=== PATIENT | female | born 1980 | race Asian ===

== ENCOUNTER 2017-09-08 00:08 | Inpatient (IN) | payer OTHER ==
[~2017-09-08] VITALS: Ht 165.1 cm; Wt 82.5 kg
[2017-09-08] MEDS ORDERED: OXYTOCIN 30U/ 0.9% NaCL 500ML 500 ML IV SCH ×2 (00:20→01:56)
[2017-09-08] MEDS ORDERED: LACTATED RINGERS 1,000 ML IV SCH ×4 (00:20→01:56)
[2017-09-08] MEDS ORDERED: METOCLOPRAMIDE 5 MG/ML, 2ML ONE (00:27)
[2017-09-08] MEDS ORDERED: SODIUM CITRATE/CITRIC ACID 30 ML UDC ONE (00:27)
[2017-09-08] MEDS ORDERED: LACTATED RINGERS 1,000 ML IVBOLUS ONE (00:30)
[2017-09-08] MEDS ORDERED: CEFAZOLIN PMX 1GM/50ML 50 ML IVPB ONE (00:30)
[2017-09-08] MEDS ORDERED: CALCIUM CARBONATE 500 MG TAB.CHEW PO PRN (00:30)
[2017-09-08] MEDS ORDERED: ONDANSETRON 2MG/ML, 2ML IVPush ONE (00:30)
[2017-09-08] MEDS ORDERED: METOCLOPRAMIDE 5 MG/ML, 2ML IV ONE (00:30)
[2017-09-08] MEDS ORDERED: SODIUM CITRATE/CITRIC ACID 30 ML UDC PO ONE (00:30)
[2017-09-08] MEDS ORDERED: OXYTOCIN 10 UNITS/ML, 1ML ONE (00:34)
[2017-09-08] MEDS ORDERED: FENTANYL PF 100 MCG/2ML ONE (00:34)
[2017-09-08] MEDS ORDERED: CEFAZOLIN 1,000 MG ONE (00:34)
[2017-09-08] MEDS ORDERED: ONDANSETRON 2MG/ML, 2ML ONE (00:34)
[2017-09-08] MEDS ORDERED: HYDROmorphone 2 MG/ML, 1ML ONE (00:35)
[2017-09-08] MEDS ORDERED: OXYTOCIN 30U/ 0.9% NaCL 500ML 500 ML ONE (00:36)
[2017-09-08 00:57] LABS: HEMATOCRIT 40.2 % (34.6-47.8); HEMOGLOBIN 13.5 g/dL (11.7-16.4); WHITE BLOOD COUNT 12.6 x10^3/uL (3.4-10)
[2017-09-08] MEDS ORDERED: MISOPROSTOL 200 MCG TABLET PR PRN (02:00)
[2017-09-08] MEDS ORDERED: IBUPROFEN 600 MG TABLET PO PRN (02:00)
[2017-09-08] MEDS ORDERED: morphine SULFATE 10 MG/ML, 1ML IVPush PRN ×2 (02:00)
[2017-09-08] MEDS ORDERED: ACETAMINOPHEN 325 MG TABLET PO PRN ×2 (02:00)
[2017-09-08] MEDS ORDERED: METOCLOPRAMIDE 5 MG/ML, 2ML IV PRN (02:00)
[2017-09-08] MEDS ORDERED: GLYCERIN ADULT SUPP PR PRN (02:00)
[2017-09-08] MEDS ORDERED: ONDANSETRON 2MG/ML, 2ML IV PRN (02:00)
[2017-09-08] MEDS ORDERED: CARBOPROST TROMETHAMINE 250 MCG/ML, 1ML IM PRN (02:00)
[2017-09-08 03:00] VITALS: BP_SYST 150; BP_SYST 162; BP_DIAS 88; BP_DIAS 99
[2017-09-08] MEDS: KETOROLAC 30 MG/1 ML IV SCH ×3 (04:10→16:00)
[2017-09-08] MEDS: OXYcodone/APAP 5/325MG TABLET PO PRN ×5 (06:17→21:25)
[2017-09-08 06:29] VITALS: BP 158/95
[2017-09-08 08:00] LABS: HEMATOCRIT 35.4 % (34.6-47.8); HEMOGLOBIN 12.1 g/dL (11.7-16.4); WHITE BLOOD COUNT 17.4 x10^3/uL (3.4-10)
[2017-09-08 08:09] LABS: PATH.CAST-FLAG NOT PRESENT; SPERM-FLAG NOT PRESENT; SRC-FLAG NOT PRESENT; XTAL-FLAG NOT PRESENT; YLC-FLAG NOT PRESENT
[2017-09-08] MEDS: PRENATAL VIT/IRON/FA 1 EACH TABLET PO SCH ×2 (08:10→10:08)
[2017-09-08] MEDS: DOCUSATE 100 MG CAPSULE PO PRN ×2 (08:10→10:08)
[2017-09-08 08:11] LABS: ASPARTATE AMINO TRANSFERASE 16 U/L (15-37); BLOOD UREA NITROGEN 7 mg/dL (7-18)
[2017-09-08 13:00] VITALS: BP 145/83
[2017-09-08] MEDS: OXYcodone IR 5MG TABLET PO PRN (14:21)
[2017-09-08 16:30] VITALS: BP 169/106
[2017-09-08] MEDS ORDERED: LABETALOL 100 MG TABLET PO SCH (18:00)
[2017-09-08 20:20] VITALS: BP 162/94
[2017-09-08] MEDS ORDERED: LABETALOL 100 MG TABLET PO ONE (21:00)
[2017-09-08 21:39] LABS: ASPARTATE AMINO TRANSFERASE 16 U/L (15-37); BLOOD UREA NITROGEN 8 mg/dL (7-18)
[2017-09-08 23:50] VITALS: BP 144/83
[2017-09-09] VITALS (8 sets, daily range): BP systolic 101–161; BP diastolic 69–103
[2017-09-09] MEDS ORDERED: FLU VACC QS2017-18 (36MOS+) UP/PF 0.5 ML IM-VACC ONE (00:30)
[2017-09-09] MEDS: DOCUSATE 100 MG CAPSULE PO PRN ×2 (01:34→21:36)
[2017-09-09] MEDS: OXYcodone IR 5MG TABLET PO PRN ×3 (01:34→17:43)
[2017-09-09] MEDS: OXYcodone/APAP 5/325MG TABLET PO PRN ×3 (05:18→21:36)
[2017-09-09] MEDS: LABETALOL 200 MG TABLET PO SCH ×2 (07:35→19:03)
[2017-09-09] MEDS: PRENATAL VIT/IRON/FA 1 EACH TABLET PO SCH (07:35)
[2017-09-10 00:01] VITALS: BP 137/82
[2017-09-10] MEDS: OXYcodone IR 5MG TABLET PO PRN (03:11)
[2017-09-10 05:00] VITALS: BP 134/88
[2017-09-10 07:00] VITALS: BP 148/94
[2017-09-10] MEDS: DOCUSATE 100 MG CAPSULE PO PRN (07:40)
[2017-09-10] MEDS: OXYcodone/APAP 5/325MG TABLET PO PRN (07:40)
[2017-09-10] MEDS: PRENATAL VIT/IRON/FA 1 EACH TABLET PO SCH (07:40)
[2017-09-10] MEDS ORDERED: DOCU-131 PO (07:54)
[2017-09-10] MEDS ORDERED: PREN-53 PO (07:55)
[2017-09-10] MEDS ORDERED: ACET325T14 PO (07:56)
[2017-09-10] MEDS ORDERED: IBUP-1222 PO (07:59)
[2017-09-10] MEDS ORDERED: LABETALOL 200 MG TABLET PO SCH (08:00)
[2017-09-10] MEDS ORDERED: OXYC-302 PO (08:00)
[2017-09-10] MEDS ORDERED: LABE200T3 PO (08:02)
== END 2017-09-10 10:58 | disposition home or self-care (01) | DRG 766 ==
LOC: LDOP 00:08 → LDIP 00:22 → 2NW 03:10
PROVIDERS: ADMIT Obstetrics & Gynecology; ATTEND Obstetrics & Gynecology
PROC: 10D00Z1 Extraction of Products of Conception, Low, Open Approach (ICD-10-PCS; principal; 2017-09-08)
DX: O34.211 Maternal care for low transverse scar from previous cesarean delivery (principal); O16.4 Unspecified maternal hypertension, complicating childbirth; Z37.0 Single live birth; O32.1XX0 Maternal care for breech presentation, not applicable or unspecified; O69.81X0 Labor and delivery complicated by cord around neck, without compression, not applicable or unspecified; Z3A.38 38 weeks gestation of pregnancy
CPT/HCPCS: 36415; 80053; 81001; 82570; 82803; 84156; 84550; 85025; 86850; 86900; 90686; J0690; J1170; J1885; J2405; J3010; J2270; J2590; J2765; J7120

== ENCOUNTER → 2018-12-11 | Outpatient (CLI) | payer OTHER ==
[~2018-12-11] MED LIST: ACET325T14 PO; DOCU-131 PO; IBUP-1222 PO; LABE200T6 PO; OXYC-302 PO; PREN-53 PO
[2018-12-11 15:09] LABS: ALBUMIN 3.5 g/dL (3.4-5.0); ANION GAP 5 mmol/L (5-15); CALCIUM 8.6 mg/dL (8.5-10.1); CHLORIDE 107 mmol/L (98-107)
[2018-12-11 15:21] LABS: ALANINE AMINOTRANSFERASE 50 U/L (12-78); ALKALINE PHOSPHATASE 176 U/L (45-117); BILIRUBIN,TOTAL 0.4 mg/dL (0.2-1.0); CREATININE 0.66 mg/dL (0.55-1.02); FREE T4 (FREE THYROXINE) 2.57 ng/dL (0.76-1.46); TOTAL PROTEIN 8.2 g/dL (6.4-8.2)
[2018-12-11 15:22] LABS: THYROID STIMULATING HORMONE < 0.005 mIU/L (0.358-3.740)
== END | disposition home or self-care (01) ==
LOC: LAB 14:28
PROVIDERS: ATTEND Nurse Practitioner Primary Care
DX: Z12.11 Encounter for screening for malignant neoplasm of colon (principal); Z12.39 Encounter for other screening for malignant neoplasm of breast; Z13.220 Encounter for screening for lipoid disorders; Z12.4 Encounter for screening for malignant neoplasm of cervix; E55.9 Vitamin D deficiency, unspecified; E05.90 Thyrotoxicosis, unspecified without thyrotoxic crisis or storm; R79.9 Abnormal finding of blood chemistry, unspecified; R53.83 Other fatigue; R03.0 Elevated blood-pressure reading, without diagnosis of hypertension
CPT/HCPCS: 36415; 80053; 84439; 84443; 84481; 86376

== ENCOUNTER → 2019-01-27 | Outpatient (CLI) | payer OTHER ==
[~2019-01-27] MED LIST changes: +LIDOCAINE-MPF 1%, 5ML ONE
== END | disposition home or self-care (01) ==
LOC: RAD 12:29
PROVIDERS: ATTEND Nurse Practitioner Primary Care
DX: E04.1 Nontoxic single thyroid nodule (principal)
CPT/HCPCS: 10005; 88305

== ENCOUNTER → 2019-02-24 | Outpatient (CLI) | payer OTHER ==
[~2019-02-24] MED LIST changes: -LIDOCAINE-MPF 1%, 5ML ONE
[2019-02-24 12:24] LABS: MEAN CORPUSCULAR HGB CONC 33.6 g/dL (32.4-35.8); MEAN CORPUSCULAR VOLUME 86.1 fL (80-100); MEAN PLATELET VOLUME 8.6 fL (7.4-10.4); PLATELET COUNT 226 x10^3/uL (130-400); RED BLOOD COUNT 4.87 x10^6/uL (3.82-5.3)
[2019-02-24 12:35] LABS: CHLORIDE 108 mmol/L (98-107)
[2019-02-24 12:51] LABS: ALANINE AMINOTRANSFERASE 43 U/L (12-78); ALBUMIN 3.5 g/dL (3.4-5.0); ALKALINE PHOSPHATASE 183 U/L (45-117); ANION GAP 5 mmol/L (5-15); BILIRUBIN,TOTAL 1.2 mg/dL (0.2-1.0); CALCIUM 8.5 mg/dL (8.5-10.1); CREATININE 0.57 mg/dL (0.55-1.02); FREE T4 (FREE THYROXINE) 1.08 ng/dL (0.76-1.46); THYROID STIMULATING HORMONE < 0.005 mIU/L (0.358-3.740); TOTAL PROTEIN 8.1 g/dL (6.4-8.2)
== END | disposition home or self-care (01) ==
LOC: LAB 12:09
PROVIDERS: ATTEND Internal Medicine Endocrinology, Diabetes & Metabolism
DX: Z79.899 Other long term (current) drug therapy (principal)
CPT/HCPCS: 36415; 80053; 84439; 84443; 84481; 85027

== ENCOUNTER → 2019-04-21 | Outpatient (CLI) | payer OTHER ==
[2019-04-21 12:49] LABS: MEAN CORPUSCULAR HEMOGLOBIN 30.3 pg (27.0-34.8); MEAN CORPUSCULAR HGB CONC 33.3 g/dL (32.4-35.8); MEAN PLATELET VOLUME 8.4 fL (7.4-10.4); PLATELET COUNT 231 x10^3/uL (130-400); RED BLOOD COUNT 4.77 x10^6/uL (3.82-5.3); RED CELL DISTRIBUTION WIDTH 14.2 % (9.6-15.2)
[2019-04-21 13:00] LABS: CHLORIDE 106 mmol/L (98-107)
[2019-04-21 13:16] LABS: ALANINE AMINOTRANSFERASE 35 U/L (12-78); ALBUMIN 3.7 g/dL (3.4-5.0); ALKALINE PHOSPHATASE 166 U/L (45-117); ANION GAP 6 mmol/L (5-15); BILIRUBIN,TOTAL 0.8 mg/dL (0.2-1.0); CALCIUM 8.4 mg/dL (8.5-10.1); CREATININE 0.82 mg/dL (0.55-1.02); FREE T4 (FREE THYROXINE) 0.82 ng/dL (0.76-1.46); THYROID STIMULATING HORMONE 0.652 mIU/L (0.358-3.740)
== END | disposition home or self-care (01) ==
LOC: LAB 12:25
PROVIDERS: ATTEND Internal Medicine Endocrinology, Diabetes & Metabolism
DX: E05.00 Thyrotoxicosis with diffuse goiter without thyrotoxic crisis or storm (principal); Z79.899 Other long term (current) drug therapy
CPT/HCPCS: 36415; 80053; 84439; 84443; 84481; 85027